=== PATIENT | male | born 1970 | race Caucasian/White ===

== ENCOUNTER 2018-11-20 13:22 | Emergency (ER) | payer OTHER ==
--- NOTE | 2018-11-20 13:27 | EDPHY ---
H & P Stated Complaint: penetrating L eye injury -ski accident stick to eye no loc, nausea Time Seen by Provider: 11/20/18 13:26 - Personal History Current Tetanus Diphtheria and Acellular Pertussis (TDAP): Unsure - Medical/Surgical History Hx Asthma: No Hx Chronic Respiratory Disease: No Hx Diabetes: No Hx Cardiac Disease: No Hx Renal Disease: No Hx Cirrhosis: No Hx Alcoholism: No Hx HIV/AIDS: No Hx Splenectomy or Spleen Trauma: No Other PMH: denies - Social History Smoking Status: Never smoked Constitutional: Initial Vital Signs Temperature (C) 36.0 C 11/20/18 13:22 Heart Rate 53 L 11/20/18 13:22 Respiratory Rate 18 11/20/18 13:22 Blood Pressure 125/84 H 11/20/18 13:22 O2 Sat (%) 99 11/20/18 13:22 O2 Delivery Mode Nasal Cannula O2 (L/minute) 2 Allergies/Adverse Reactions: tree nut [Nuts] Allergy (Verified 11/20/18 13:47) Home Medications: Medication Instructions Recorded NK [No Known Home Meds] 11/20/18 Medical Decision Making - Diagnostics Imaging Results: Imaging Impressions Face CT 11/20/18 13:29 Impression: 1. Rupture of the left globe, with a small postseptal hematoma. 2. Comminuted displaced fracture of the left medial orbital wall, with the medial rectus abutting the fracture line. 3. 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 4. Additional findings as above. Findings discussed with Luke Hansen M.D., on November 20, 2018 at 1350. Imaging: Discussed imaging studies w/ will call order clerk Radiologist, I viewed and interpreted images myself ED Course/Re-evaluation: CHIEF COMPLAINT: Penetrating left eye injury HISTORY OF PRESENT ILLNESS: The patient is a 48 y/o male arriving POV with his friends with a penetrating injury to his left eye suffered while skiing today at [place] around noon, 1.5 hours ago. His friend says a twig struck the patient' s eye while skiing. He has not been able to see out of this eye since the injury. He did not lose consciousness. No other trauma. He is typically healthy. REVIEW OF SYSTEMS: A comprehensive 10 system review of systems is otherwise negative aside from elements mentioned in the history of present illness and medical decision making. PHYSICAL EXAM: HR, BP, O2 Sat, RR. Temp noted General Appearance: Alert, well hydrated, appropriate, and non-toxic appearing. Head: Atraumatic without scalp tenderness or obvious injury Eyes: Significant hyphema, no efferent or afferent response, traumatic mydriasis, severe conjunctival hemorrhage, and proptosis. There is a laceration to his left druze. Ears: Clear bilaterally, no perforation, normal landmarks Nose: Atraumatic, no rhinorrhea, clear. Throat: Mucus membranes moist. Neck: Supple, nontender, no lymphadenopathy. Respiratory: No retractions, no distress, no wheezes, and no accessory muscle use. Lungs are clear to auscultation bilaterally. Cardiovascular: Regular rate and rhythm, no murmurs, rubs, or gallops. Good capillary refill all extremities. Gastrointestinal: Abdomen is soft, nontender, non-distended, no masses, no rebound, no guarding, no peritoneal signs. Musculoskeletal: Normal active ROM of all extremities, atraumatic. Neurological: Alert, appropriate, and interactive. Peripherally nonfocal. Skin: No rashes, good turgor, no nodules on palpation. Past medical history: Denies Past surgical history: Denies Family history: Noncontributory Social history: Nonsmoker. Friends at bedside. DIAGNOSTICS/PROCEDURES/CRITICAL CARE TIME: Maxillofacial without IV contrast, preliminary read: Globe rupture, medial and inferior orbit fractures. Critical care time spent by me, Dr. Hansen, exclusively with this patient was 35 minutes, exclusive of PA time and exclusive of procedures. The organ system at risk was ophthalmologic. Time spent in urgent assessment and serial assessments of the patient, consideration of interventions, ophthalmology and surgery consultation, and review of CT imaging and labs. DIFFERENTIAL DIAGNOSIS: The differential diagnosis for the patient's trauma included but was not limited to intracranial injury, long bone and pelvic bone fractures, spinal injury, intra-abdominal injury, and intra-thoracic injury. MEDICAL DECISION MAKIN: Met patient upon arrival and urgently assessed him. This is a 48 y/o male presents with penetrating left eye trauma secondary to a twig injury while skiing at [place] 1.5 hours ago. On exam he has significant hyphema, no efferent or afferent response, traumatic mydriasis, severe conjunctival hemorrhage, and proptosis. There is a laceration to his left druze. Plan for immediate maxillofacial CT, IV, ISTAT, and pain medication. 2gm IV Ancef, 1mg IV Dilaudid ordered. 1336: Consulted with Dr. Wolfe, ophthalmology. If ruptured globe, blood behind eye, or it needs to be explored, then patient will require transfer to [facility]. 1340: Flight placed on standby. CT shows ruptured globe, orbital fractures. 1400: Consulted with Dr. Bowers, [facility] trauma surgery. He accepts transfer. 1403: Consulted with Dr. Puente, [facility] apprentice plumber. He accepts transfer. Tetanus vaccine administered. 1430: Patient left department with flight crew. - Data Points Laboratory Results: 11/20/18 13:37 POC Hgb 14.6 gm/dL gm/dL (13.7-17.5) POC Hct 43 % % (40-51) POC Sodium 142 mEq/L mEq/L (135-145) POC Potassium 3.6 mEq/L mEq/L (3.3-5.0) POC Chloride 104 mEq/L mEq/L (97-110) POC BUN 10 mg/dL mg/dL (7-23) POC Creatinine 0.7 mg/dL mg/dL (0.7-1.3) POC Glucose 180 mg/dL H mg/dL (70-100) Medications Given: Discontinued Medications Diphtheria/Tetanus/Acell Pertussis (Boostrix) 0.5 ml IM .ONCE ONE Stop: 11/20/18 14:06 Last Admin: 11/20/18 14:13 Dose: 0.5 ml Hydromorphone HCl (Dilaudid) 1 mg IVP EDNOW ONE Stop: 11/20/18 13:32 Last Admin: 11/20/18 13:34 Dose: 1 mg Hydromorphone HCl (Dilaudid) 1 mg IVP EDNOW ONE Stop: 11/20/18 14:08 Last Admin: 11/20/18 14:12 Dose: 1 mg Cefazolin Sodium/Dextrose (Ancef) 100 mls @ 200 mls/hr IV EDNOW ONE PRN Reason: Protocol Stop: 11/20/18 13:59 Last Admin: 11/20/18 13:41 Dose: 100 mls Sodium Chloride (Ns) 1,000 mls @ 0 mls/hr IV ONCE ONE PRN Reason: Wide Open Stop: 11/20/18 13:34 Last Admin: 11/20/18 13:36 Dose: 1,000 mls Ondansetron HCl (Zofran) 4 mg IVP EDNOW ONE Stop: 11/20/18 13:34 Last Admin: 11/20/18 13:33 Dose: 4 mg Point of Care Test Results: Chemistry 11/20/18 13:37 POC Sodium 142 mEq/L mEq/L (135-145) POC Potassium 3.6 mEq/L mEq/L (3.3-5.0) POC Chloride 104 mEq/L mEq/L (97-110) POC BUN 10 mg/dL mg/dL (7-23) POC Creatinine 0.7 mg/dL mg/dL (0.7-1.3) POC Glucose 180 mg/dL H mg/dL (70-100) ISTAT H&H 11/20/18 13:37 POC Hgb 14.6 gm/dL gm/dL (13.7-17.5) POC Hct 43 % % (40-51) Departure - Departure Disposition: [facility] Clinical Impression: Proptosis Ruptured globe of left eye Qualifiers: Encounter type: initial encounter Qualified Code(s): S05.32XA - Ocular laceration without prolapse or loss of intraocular tissue, left eye, initial encounter Medial orbital wall fracture Qualifiers: Encounter type: initial encounter Fracture type: open Qualified Code(s): S02.80XB - Fracture of other specified skull and facial bones, unspecified side , initial encounter for open fracture Fracture of inferior orbital wall Qualifiers: Encounter type: initial encounter Fracture type: closed Laterality: left Qualified Code(s): S02.32XA - Fracture of orbital floor, left side, initial encounter for closed fracture Penetrating eye injury of left eye Qualifiers: Encounter type: initial encounter Qualified Code(s): S05.62XA - Penetrating wound without foreign body of left eyeball, initial encounter Condition: Critical Referrals: NONE *PRIMARY CARE P,. [Primary Care Provider] - As per Instructions Report Scribed for: Luke Hansen Report Scribed by: Vidhi Kaiser Date of Report: 11/20/18 Time of Report: 14:09
[2018-11-20] MEDS ORDERED: HYDROmorphONE/DILAUDID 1 MG/ML INJ ONE (13:29)
[2018-11-20] MEDS ORDERED: ONDANSETRON 4 MG/2 ML VIAL ONE (13:30)
[2018-11-20] MEDS ORDERED: ceFAZolin 2 GM/DEXTROSE 100 ML IV ONE (13:30)
[2018-11-20] MEDS ORDERED: HYDROmorphONE/DILAUDID 2 MG/ML INJ IVP ONE (13:31)
[2018-11-20] MEDS ORDERED: ONDANSETRON 4 MG/2 ML VIAL IVP ONE (13:33)
[2018-11-20] MEDS ORDERED: NS 1,000 ML IV ONE (13:33)
[2018-11-20] MEDS ORDERED: TDAP ADULT 0.5 ML INJ (BOOSTRIX) IM ONE (14:05)
[2018-11-20] MEDS ORDERED: HYDROmorphONE/DILAUDID 1 MG/ML INJ IVP ONE (14:07)
[2018-11-20 14:41] VITALS: BP 133/80
== END 2018-11-20 14:30 | disposition short-term general hospital (02) ==
DX: S05.32XA Ocular laceration without prolapse or loss of intraocular tissue, left eye, initial encounter (principal); S02.32XA Fracture of orbital floor, left side, initial encounter for closed fracture; H05.20 Unspecified exophthalmos; V00.328A Other snow-ski accident, initial encounter; Y92.838 Other recreation area as the place of occurrence of the external cause; Y93.9 Activity, unspecified; Y99.9 Unspecified external cause status
CPT/HCPCS: 82435-PO; 82565-PO; 82947-PO; 84132-PO; 84295-PO; 84520-PO; 85014-ER; 96365; J0690; J1170; J2405